=== PATIENT | male | born 1980 | race Caucasian/White ===

== ENCOUNTER 2017-12-06 21:29 | Emergency (ER) | payer OTHER | END 2017-12-07 02:02 | disposition home or self-care (01) | LOC: M ED 21:29 | DX: S86.111A Strain of other muscle(s) and tendon(s) of posterior muscle group at lower leg level, right leg, initial encounter (principal); X58.XXXA Exposure to other specified factors, initial encounter; Y92.9 Unspecified place or not applicable; Y93.9 Activity, unspecified; Y99.0 Civilian activity done for income or pay; Z87.891 Personal history of nicotine dependence | CPT/HCPCS: 99283 ==

== ENCOUNTER → 2017-12-19 | Outpatient (CLI) | payer OTHER | LOC: M RAD 07:13 | DX: M79.605 Pain in left leg (principal); M79.604 Pain in right leg ==

== ENCOUNTER → 2018-06-04 | Outpatient (CLI) | payer OTHER | LOC: M SMT 15:01 | DX: R06.02 Shortness of breath (principal) | CPT/HCPCS: 71046 ==

== ENCOUNTER → 2018-07-01 | Outpatient (CLI) | payer OTHER ==
[~2018-07-01] MED LIST: ALEV220C2 PO; IBUP200C25 PO; METHACHOLINE KIT (J7674) INH ONE; NORCOTAB PO; TYLE325T5 PO; XARE20TA PO
--- NOTE | 2018-07-01 15:11 | PFTRPT ---
Height: 66.00 Inches Weight: 193.00 Lbs BSA: 1.97 Diagnosis: R06.02 DATE OF PROCEDURE: 07/01/2018 ORDERING PROVIDER: Dr. Raines INTERPRETATION: Study of excellent technical quality. Under protocol, methacholine was administered. At a dose of 2.5 mg or 13.875 CDUs, a 24% decline in the FEV1 was noted. PC of 0.86 is significant. Flow rates did return to baseline post bronchodilator administration. IMPRESSION: Positive methacholine challenge study. MTDD
== END ==
LOC: M CARPUL 10:18
PROVIDERS: ATTEND Internal Medicine Pulmonary Disease
DX: R06.02 Shortness of breath (principal)
CPT/HCPCS: 94070; J7674

== ENCOUNTER → 2018-08-11 | Outpatient (CLI) | payer OTHER ==
[~2018-08-11] MED LIST changes: +ADVA115A INH; -METHACHOLINE KIT (J7674) INH ONE; +MIRA3350 PO; +VENTAER IN
--- NOTE | 2018-08-11 14:13 | REP ---
Duplex extremity venous ultrasound: Right lower extremity. History: Acute embolism or thrombosis right leg . Findings: The deep veins are anechoic and fully compressible from the groin to the popliteal fossa in the right lower extremity. Color flow imaging is homogeneous. Spectral Doppler interrogation demonstrates intact respiratory variation in flow and normal manual augmentation of flow. There is no evidence of deep vein thrombosis. Impression: Negative right lower extremity duplex venous ultrasound. No evidence of deep vein thrombosis. Electronically Signed by Chong Kerr MD 08/11/2018 12:23 P
== END ==
LOC: M RAD 11:46
PROVIDERS: ATTEND Internal Medicine Hematology & Oncology
DX: I82.401 Acute embolism and thrombosis of unspecified deep veins of right lower extremity (principal)

== ENCOUNTER → 2018-09-11 | Outpatient (CLI) | payer OTHER ==
[~2018-09-11] MED LIST changes: +FAMO20TA PO; +HYDR200T3 PO; +PRED20TA PO; +PROHANCE 279.3MG/ML 5ML VIAL (A9576) As Ordered ONE
--- NOTE | 2018-09-11 10:22 | REP ---
MR BRAIN WITHOUT AND WITH CONTRAST: HISTORY: Occipital headaches. CONTRAST: ProHance 8 mL. There are no areas of abnormal signal intensity in the brain. There is no intraparenchymal hemorrhage, infarct mass or midline shift. A 4 mm left choroid fissure cyst is present. There is no abnormal enhancement. The ventricular system is normal in appearance. There is no extracerebral collection. The pituitary gland is normal in size and signal intensity. The pituitary gland measures 6 mm in height. There is homogenous enhancement with contrast. The infundibulum is midline. The cavernous sinuses, optic chiasm and hypothalamus are normal in appearance. Mucosal thickening is present in the right maxillary sinus. IMPRESSION:There is no intracranial lesion. Electronically Signed by Barrie Song MD 09/11/2018 10:26 A
== END ==
LOC: M RAD 08:36
PROVIDERS: ATTEND Internal Medicine Hematology & Oncology
DX: M54.81 Occipital neuralgia (principal)
CPT/HCPCS: 70553; A9576

== ENCOUNTER 2018-09-21 14:10 | Emergency (ER) | payer OTHER ==
[~2018-09-21] VITALS: Ht 167.6 cm; Wt 81.8 kg
[~2018-09-21 14:10] MED LIST changes: -PROHANCE 279.3MG/ML 5ML VIAL (A9576) As Ordered ONE
[2018-09-21] MEDS ORDERED: LISI10TA4 (14:29)
[2018-09-21] MEDS ORDERED: NS 1,000 ML IV ONE (15:00)
[2018-09-21 15:36] LABS: BASO # 0.1 10^3/uL (0.0-0.2); BASO % 0.7 % (0.0-1.0); EOS # 0.1 10^3/uL (0.0-0.50); HEMATOCRIT 48.6 % (42.0-52.0); HEMOGLOBIN 16.1 g/dl (13.5-17.5); LYMPH # 0.8 10^3/uL (1.5-4.5); LYMPH % 11.5 % (24.0-44.0); MEAN CORPUSCULAR HEMOGLOBIN 29.5 pg (27.0-33.0); MEAN CORPUSCULAR HGB CONC 33.1 g/dl (32.0-36.5); MONO # 0.5 10^3/uL (0.0-0.8); MONO % 6.6 % (0.0-5.0); NEUTROPHILS # 5.5 10^3/uL (1.8-7.7); NEUTROPHILS % 78.8 % (36.0-66.0); PLATELET COUNT, AUTOMATED 252 10^3/uL (150-450); RED BLOOD COUNT 5.46 10^6/uL (4.30-6.10); WHITE BLOOD COUNT 6.9 10^3/uL (4.0-10.0)
[2018-09-21 15:58] LABS: INR 0.99; PROTHROMBIN TIME 13.2 SECONDS (12.1-14.4)
[2018-09-21 15:59] LABS: PARTIAL THROMBOPLASTIN TIME 26.5 SECONDS (25.4-37.6)
[2018-09-21 16:01] LABS: ALBUMIN 4.1 GM/DL (3.2-5.2); ALT/SGPT 82 U/L (12-78); BILIRUBIN,DIRECT 0.1 MG/DL (0.0-0.2); BILIRUBIN,TOTAL 0.5 MG/DL (0.2-1.0); BLOOD UREA NITROGEN 26 MG/DL (7-18); CALCIUM LEVEL 8.4 MG/DL (8.5-10.1); CARBON DIOXIDE LEVEL 29 MEQ/L (21-32); CHLORIDE LEVEL 108 MEQ/L (98-107); CREATININE FOR GFR 1.29 MG/DL (0.70-1.30); GLOMERULAR FILTRATION RATE > 60.0 (>60); GLUCOSE, FASTING 65 MG/DL (70-100); POTASSIUM SERUM 4.6 MEQ/L (3.5-5.1); SODIUM LEVEL 142 MEQ/L (136-145); TOTAL PROTEIN 6.6 GM/DL (6.4-8.2)
[2018-09-21] MEDS ORDERED: ISOVUE-370 76% 100ML VIAL (Q9967) As Ordered ONE (16:06)
[2018-09-21] MEDS ORDERED: MORPHINE 4 MG/ML 1ML VIAL/SYRINGE (J2270) IV ONE (16:15)
--- NOTE | 2018-09-21 16:36 | REP ---
CT of the brain without IV contrast: There is no subdural or epidural hematoma. There is no intracranial hemorrhage otherwise. There is no edema, mass effect or midline shift. The ventricles are normal size. The visualized paranasal sinuses and mastoid air cells are clear. Impression: Essentially negative CT study of the brain. Electronically Signed by Remington Butler MD 09/21/2018 04:28 P
--- NOTE | 2018-09-21 16:39 | REP ---
CT of the cervical spine without IV contrast: Axial images are acquired helical scanning and a reformatted sagittal coronal projections. Vertebral body heights and alignment are normal. There is degenerative disc disease with disc space narrowing at C5-6 and C6-7. The prevertebral soft tissues are unremarkable. The facets are normally aligned. There are no posterior element fractures. The skull base, C1-C2 are unremarkable. Impression: There is no fracture or listhesis. There is degenerative disc disease at C5-6 and C6-7. Otherwise, negative CT of the cervical spine. Depending on symptoms, consider follow-up MRI to evaluate for nerve root compression or cord symptoms. Electronically Signed by Remington Butler MD 09/21/2018 04:31 P
--- NOTE | 2018-09-21 16:53 | REP ---
CT of the chest with IV contrast for trauma: There is no pneumothorax, hemothorax or pulmonary contusion. The thoracic aorta is unremarkable. There is no mediastinal hematoma. There is no clavicle, scapula, or sternal fracture. There are no rib fractures. There are no thoracic vertebral body compression deformities or listhesis. Cardiac size is normal. Impression: Essentially negative CT study of the chest. Electronically Signed by Remington Butler MD 09/21/2018 04:45 P
--- NOTE | 2018-09-21 16:56 | REP ---
CT of the abdomen and pelvis with IV contrast: Studies performed. Contiguous with the chest CT. There is no pneumoperitoneum or hemoperitoneum. The abdominal aorta is unremarkable. There is no retroperitoneal hematoma. The hepatic parenchyma, gallbladder, pancreas and spleen are unremarkable. The adrenals and kidneys are unremarkable. The bowel and mesentery are unremarkable. Pelvis: The bladder is unremarkable. There is no free fluid. The pelvic bowel loops are unremarkable. There are no lumbar vertebral compression deformities or listhesis. There are no posterior element fractures. There is degenerative disc disease at L1-2. There is no sacral fracture. There is no pelvic fracture. There is no hip fracture. Impression: Essentially negative CT study of the abdomen and pelvis. Electronically Signed by Remington Butler MD 09/21/2018 04:48 P
[2018-09-21 17:51] VITALS: BP 142/78
== END 2018-09-21 17:52 | disposition home or self-care (01) ==
LOC: M ED 14:10 → EDBD 14:10 → M ED 17:52
DX: S20.212A Contusion of left front wall of thorax, initial encounter (principal); S16.1XXA Strain of muscle, fascia and tendon at neck level, initial encounter; V49.40XA Driver injured in collision with unspecified motor vehicles in traffic accident, initial encounter; Y92.410 Unspecified street and highway as the place of occurrence of the external cause; M50.322 Other cervical disc degeneration at C5-C6 level; M50.323 Other cervical disc degeneration at C6-C7 level; Z79.899 Other long term (current) drug therapy; Z79.01 Long term (current) use of anticoagulants; Z79.51 Long term (current) use of inhaled steroids
CPT/HCPCS: 70450; 71260; 72125; 74177; 80048; 80076; 85025; 85610; 85730; 93041; 94760; 96374; 99285; J2270; Q9967

== ENCOUNTER → 2019-01-27 | Outpatient (CLI) | payer OTHER ==
[~2019-01-27] MED LIST changes: +HYDR-3715 PO; +LISI10TA4; -NORCOTAB PO
--- NOTE | 2019-01-27 09:04 | REP ---
Left lower extremity deep vein duplex ultrasound: There are no comparison studies of the left lower extremity. The patient had as a clinical history of deep vein thrombosis with pulmonary embolus and currently has left calf bruising. The patient is on anticoagulant medication. The deep veins of the left lower extremity demonstrate normal compression, normal Doppler color flow and normal Doppler waveforms with respiration and augmentation from the popliteal vein to the common femoral vein. Ultrasonography over the area of bruising in the medial left calf identifies no hematoma or other abnormality. Impression: There is no deep vein thrombus. Electronically Signed by Remington Butler MD 01/27/2019 08:56 A
== END ==
LOC: M RAD 06:33
PROVIDERS: ATTEND Physician Assistant
DX: Z86.718 Personal history of other venous thrombosis and embolism (principal)

== ENCOUNTER 2019-05-27 12:43 | Day surgery (SDC) | payer OTHER ==
[~2019-05-27] VITALS: Ht 167.6 cm; Wt 79.3 kg
[~2019-05-27 12:43] MED LIST changes: +IBUP-1022 PO; -LISI10TA4; +LISI10TA4 PO; +META28.32 PO; +NORT10CA2 PO; +NS 1,000 ML IV ONE; +TRAM50TA2 PO
[2019-05-27] MEDS ORDERED: LIDOCAINE 2% INJ 100 MG/5 ML SDV (FOR ANES.) As Ordered ONE (14:14)
[2019-05-27] MEDS ORDERED: PROPOFOL 200 MG/20 ML VIAL As Ordered ONE (14:14)
--- NOTE | 2019-05-27 15:08 | ROOR ---
Patient Name: Cosme Valdovinos Procedure Date: 05/27/2019 2:44 PM Date of : 1980 Age: 39 Room: [facility] Gender: Male Note Status: Finalized Procedure: Upper Endoscopy + Biopsies Indications: Epigastric abdominal pain Providers: Ethan Lopez MD Referring MD: Kolton Vergara Md, MIKE GOYAL MD Requesting Provider: Medicines: Monitored Anesthesia Care Complications: No immediate complications. Procedure: Pre-Anesthesia Assessment: - The heart rate, respiratory rate, oxygen saturations, blood pressure, adequacy of pulmonary ventilation, and response to care were monitored throughout the procedure. The Endoscope was introduced through the mouth, and advanced to the second part of duodenum. The upper GI endoscopy was accomplished without difficulty. The patient tolerated the procedure well. Findings: The Z-line was regular and was found 40 cm from the incisors. Multiple biopsies were obtained with cold forceps for evaluation to rule out Parkinson's Esophagus randomly at the gastroesophageal junction. No other significant abnormalities were identified in a careful examination of the stomach. Biopsies were taken with a cold forceps in the gastric antrum for Helicobacter pylori testing. The exam of the duodenum was otherwise normal. Biopsies for histology were taken with a cold forceps in the first portion of the duodenum for evaluation of celiac disease. The exam was otherwise without abnormality. Impression: - Z-line regular, 40 cm from the incisors. - The examination was otherwise normal. - Multiple biopsies were obtained at the gastroesophageal junction. - Biopsies were taken with a cold forceps for Helicobacter pylori testing. - Biopsies were taken with a cold forceps for evaluation of celiac disease. - The examination was otherwise normal. Recommendation: - Patient has a contact number available for emergencies. The signs and symptoms of potential delayed complications were discussed with the patient. Return to normal activities tomorrow. Written discharge instructions were provided to the patient. - High fiber diet. - Discharge patient to home. - Follow an antireflux regimen. - Continue present medications. - Await pathology results. - Telephone GI clinic for pathology results in 1 week. - The findings and recommendations were discussed with the patient's family. Ethan Lopez MD Ethan Lopez MD 05/27/2019 3:08:11 PM Electronically signed by Ethan Lopez MD Number of Addenda: 0 Note Initiated On: 05/27/2019 2:44 PM Estimated Blood Loss: Estimated blood loss: none.
--- NOTE | 2019-05-27 15:22 | ROOR ---
Patient Name: Cosme Valdovinos Procedure Date: 05/27/2019 2:46 PM Date of : 1980 Age: 39 Room: [facility] Gender: Male Note Status: Finalized Procedure: Total Colonoscopy to Cecum Indications: Rectal bleeding Providers: Ethan Lopez MD Referring MD: Kolton Vergara Md, MIKE GOYAL MD Requesting Provider: Medicines: Monitored Anesthesia Care Complications: No immediate complications. Procedure: Pre-Anesthesia Assessment: - The heart rate, respiratory rate, oxygen saturations, blood pressure, adequacy of pulmonary ventilation, and response to care were monitored throughout the procedure. The Colonoscope was introduced through the anus and advanced to the cecum, identified by appendiceal orifice and ileocecal valve. The colonoscopy was performed without difficulty. The patient tolerated the procedure well. The quality of the bowel preparation was excellent. Findings: The perianal and digital rectal examinations were normal. Non-bleeding internal hemorrhoids were found during retroflexion. The hemorrhoids were small and Grade I (internal hemorrhoids that do not prolapse). No other significant abnormalities were identified in a careful examination of the remainder of the colon. The exam was otherwise without abnormality on direct and retroflexion views. Impression: - Non-bleeding internal hemorrhoids. - The examination was otherwise normal on direct and retroflexion views. - No specimens collected. - The exam was otherwise normal to the cecum. Recommendation: - Patient has a contact number available for emergencies. The signs and symptoms of potential delayed complications were discussed with the patient. Return to normal activities tomorrow. Written discharge instructions were provided to the patient. - High fiber diet. - Discharge patient to home. - Continue present medications. - Repeat colonoscopy at age 50 for screening purposes. - Return to referring physician. - Use Analpram HC Cream 2.5%: Apply externally as necessary. - The findings and recommendations were discussed with the patient's family. Ethan Lopez MD Ethan Lopez MD 05/27/2019 3:22:27 PM Electronically signed by Ethan Lopez MD Number of Addenda: 0 Note Initiated On: 05/27/2019 2:46 PM Estimated Blood Loss: Estimated blood loss: none.
[2019-05-27 16:00] VITALS: BP 176/91
== END 2019-05-27 16:02 | disposition home or self-care (01) ==
LOC: M OPP 12:43
PROVIDERS: ATTEND Internal Medicine Gastroenterology
DX: K64.0 First degree hemorrhoids (principal); K62.5 Hemorrhage of anus and rectum; R10.13 Epigastric pain; K62.6 Ulcer of anus and rectum; G47.30 Sleep apnea, unspecified; M32.9 Systemic lupus erythematosus, unspecified; Z79.899 Other long term (current) drug therapy